=== PATIENT | male | born 1960 | race Caucasian/White ===

== ENCOUNTER 2018-10-15 23:04 | Inpatient (IN) | payer BC ==
--- NOTE | 2018-10-15 23:27 | ED ---
Chest Pain HPI - General Chief Complaint: Chest Pain Stated Complaint: Chest pain Time Seen by Provider: 10/15/18 23:10 Source: EMS Mode of arrival: EMS Limitations: no limitations - History of Present Illness Initial Comments: This patient is a 58-year-old man with history of previous MO over 10 years ago with stent placement, who presents by ambulance to be evaluated for left chest pain. The patient states that he had changed the rims on his 's vehicle tonight and then noticed that his chest was having some burning/aching discomfort. He tried taking aspirin which did not relieve things and then phoned EMS. They also gave the patient nitroglycerin which not relieve the symptoms. The patient rates things as moderate intensity. He has not noted worsening or relieving factors. No associated symptoms. 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 MD Complaint: chest pain Onset/Timin -: hour(s) Onset: other Pain Location: substernal Pain Radiation: LUE Severity: moderate Quality: aching Consistency: constant Improves With: nothing Worsens With: nothing Treatments Prior to Arrival: aspirin, nitroglycerin, oxygen - Related Data Home Medications Medication Instructions Recorded Confirmed ALPRAZolam [Xanax] 0.25 mg PO DAILY PRN 10/15/18 10/15/18 Aspirin EC [Ecotrin Low Dose] 81 mg PO HS 10/15/18 10/15/18 Atorvastatin [Lipitor] 80 mg PO HS 10/15/18 10/15/18 Losartan/Hydrochlorothiazide 1 tab PO HS 10/15/18 10/15/18 [Losartan-Hctz 100-12.5 mg Tab] Allergies Allergy/AdvReac Type Severity Reaction Status Date / Time No Known Allergies Allergy Verified 10/15/18 23:27 Review of Systems ROS Statement: Those systems with pertinent positive or pertinent negative responses have been documented in the HPI. ROS Other: All systems not noted in ROS Statement are negative. Constitutional: Denies: fever, chills Eyes: Denies: vision change Respiratory: Denies: cough, dyspnea Cardiovascular: Reports: as per HPI, chest pain. Denies: palpitations, dyspnea on exertion, orthopnea, edema, syncope Endocrine: Denies: fatigue Gastrointestinal: Denies: abdominal pain, nausea, vomiting Musculoskeletal: Denies: back pain Skin: Denies: rash Neurological: Denies: headache, weakness, numbness Hematological/Lymphatic: Denies: easy bleeding EKG Findings - EKG Results: EKG: interpreted by AYUSH, sinus rhythm (Rate 62 bpm) - Blocks, [place], Hypertrophy, ST Abn: QRS axis and voltage: left axis deviation (-30 to -90) Chamber hypertrophy or enlargement: left ventricular hypertrophy or enlargement (LVE) Past Medical History Past Medical History: Hyperlipidemia, Hypertension, Myocardial Infarction (MO) History of Any Multi-Drug Resistant Organisms: None Reported Past Surgical History: Heart Catheterization With Stent Additional Past Surgical History / Comment(s): mass removal Hodgkins nonlymphnodes Past Psychological History: No Psychological Hx Reported Smoking Status: Former smoker Past Alcohol Use History: None Reported Past Drug Use History: None Reported - Past Family History Father Family Medical History: Mitral Valve Prolapse (MVP) General Exam Limitations: no limitations General appearance: alert, in no apparent distress Head exam: Present: atraumatic, normocephalic Eye exam: Present: normal appearance. Absent: scleral icterus, conjunctival injection ENT exam: Present: normal oropharynx Neck exam: Present: normal inspection Respiratory exam: Present: normal lung sounds bilaterally. Absent: respiratory distress, wheezes, rales, rhonchi, stridor Cardiovascular Exam: Present: regular rate, normal rhythm, normal heart sounds. Absent: systolic murmur, diastolic murmur, rubs, gallop GI/Abdominal exam: Present: soft. Absent: distended, tenderness, guarding, rebound, rigid, mass Extremities exam: Present: normal inspection, normal capillary refill. Absent: pedal edema, calf tenderness Back exam: Present: normal inspection. Absent: CVA tenderness (R), CVA tenderness (L) Neurological exam: Present: alert Skin exam: Present: warm, dry, intact, normal color. Absent: rash Course Vital Signs 10/15/18 10/15/18 10/15/18 23:05 23:11 23:20 Temperature 98.1 F Pulse Rate 59 L 56 L Respiratory 18 11 L Rate Blood Pressure 161/85 161/85 O2 Sat by Pulse 99 96 98 Oximetry 10/15/18 10/15/18 10/15/18 23:30 23:40 23:50 Temperature Pulse Rate 60 58 L 57 L Respiratory 20 20 16 Rate Blood Pressure 161/85 131/79 131/79 O2 Sat by Pulse 95 96 97 Oximetry 10/16/18 10/16/18 10/16/18 00:00 01:00 02:00 Temperature Pulse Rate 54 L 52 L 49 L Respiratory 19 27 H 23 Rate Blood Pressure 131/79 127/66 127/76 O2 Sat by Pulse 97 95 Oximetry - Reevaluation(s) Reevaluation #1: 10/16/18 01:04 Patient's 58-year-old man with chest pain and minimally elevated troponin. Case has been discussed with cardiology (Dr. Kowalski) and with Dr. Abel who will be admitting physician. There treatment recommendations incorporated. The patient does continue to have some chest discomfort that he is rating a 3 out of 10 currently increasing nitroglycerin and if we are not able to resolve the discomfort the patient may require heart cath Tonight. Reevaluation #2: 10/16/18 02:07 Case discussed with cardiology and the ECG to be faxed. Critical Care Time Critical Care Time: Yes (40 minutes) Disposition Clinical Impression: Acute coronary syndrome, Elevated troponin I level Disposition: ADMITTED IP TO THIS HOSP Condition: Serious
[2018-10-15 23:37] LABS: Basophils # (A) 0.1 k/uL (0-0.2); Basophils % (A) 1 %; Eosinophils # (A) 0.2 k/uL (0-0.7); Eosinophils % (A) 2 %; HCT 41.1 % (39.0-53.0); HGB 13.7 gm/dL (13.0-17.5); Lymphocytes # (A) 1.7 k/uL (1.0-4.8); Lymphocytes % (A) 21 %; MCH 31.1 pg (25.0-35.0); MCHC 33.3 g/dL (31.0-37.0); MCV 93.2 fL (80.0-100.0); Mean Platelet Volume 6.7; Monocytes # (A) 0.5 k/uL (0-1.0); Monocytes % (A) 6 %; Neutrophils # (A) 5.4 k/uL (1.3-7.7); Neutrophils % (A) 68 %; Platelet Count 283 k/uL (150-450); RBC 4.41 m/uL (4.30-5.90); WBC 7.9 k/uL (3.8-10.6)
--- NOTE | 2018-10-15 23:41 | XR ---
EXAMINATION TYPE: XR chest 1V portable DATE OF EXAM: 10/15/2018 COMPARISON: NONE HISTORY: Chest pain TECHNIQUE: Single frontal view of the chest is obtained. FINDINGS: There is no heart failure nor confluent pneumonic infiltrate. Costophrenic angles are brant r. There are chest leads. IMPRESSION: No active cardiopulmonary disease. Normal heart.
[2018-10-16 00:01] LABS: ALT 30 U/L (21-72); AST 25 U/L (17-59); Albumin 3.9 g/dL (3.5-5.0); Alkaline Phosphatase 80 U/L (38-126); Anion Gap 9 mmol/L; Blood Urea Nitrogen 21 mg/dL (9-20); Calcium 9.4 mg/dL (8.4-10.2); Carbon Dioxide 27 mmol/L (22-30); Chloride 104 mmol/L (98-107); Glucose 131 mg/dL (74-99); Potassium 4.1 mmol/L (3.5-5.1); Sodium 140 mmol/L (137-145); Total Bilirubin 0.3 mg/dL (0.2-1.3); Total Protein 6.7 g/dL (6.3-8.2)
[2018-10-16 00:03] LABS: INR 0.9 (<1.2); Partial Thromboplastin Time 25.7 sec (22.0-30.0)
[2018-10-16 00:09] LABS: Creatine Kinase MB 5.9 ng/mL (0.0-2.4)
[2018-10-16 00:22] LABS: Troponin I 0.792 ng/mL (0.000-0.034)
[2018-10-16] MEDS ORDERED: HEPARIN SODIUM,PORCINE 5,000 UNIT/ML 1 ML VIAL IV ONE (00:26)
[2018-10-16] MEDS ORDERED: HEPARIN SODIUM,PORCINE 5,000 UNIT/ML 1 ML VIAL IV PRN (00:26)
[2018-10-16] MEDS ORDERED: HEPARIN SOD,PORK IN 0.45% NACL 25,000 UNIT in 0.45% NACL 1 250ML.BAG IV SCH (00:30)
[2018-10-16] MEDS ORDERED: MORPHINE SULFATE 4 MG/ML SYRINGE IV STA (00:31)
[2018-10-16] MEDS ORDERED: NITROGLYCERIN-D5W PMX 50 MG in DEXTROSE/WATER 1 250ML.BAG IV ONE (00:32)
[2018-10-16] MEDS: SODIUM CHLORIDE 0.9% 1,000 ML IV SCH ×5 (03:26→20:39)
[2018-10-16] MEDS ORDERED: ATORVASTATIN 80 MG TAB PO STA (05:20)
[2018-10-16] MEDS ORDERED: SODIUM CHLORIDE 0.9% 1,000 ML in EMPTY BAG 1 BAG IV ONE (05:20)
[2018-10-16] MEDS ORDERED: ASPIRIN 325 MG TAB PO STA (05:20)
[2018-10-16 06:52] LABS: Creatine Kinase MB 15.8 ng/mL (0.0-2.4)
--- NOTE | 2018-10-16 07:08 | P.CRDCN ---
History of Present Illness Consult date: 10/16/18 History of present illness: This is a 58-year-old gentleman with history of previous stent placement done about 15 years ago who comes here with complaints of burning chest pain. Over the last 2 years, Patient has been having exertional chest burning relieved with rest. Yesterday around 8:00, patient started having burning chest pain in the middle of the chest. Not associated with nausea vomiting or sweating. The chest pain was continuous and finally patient came to the emergency room. His EKG did not reveal any acute changes but there are mild nonspecific T-wave inversions in anterolateral leads. His cardiac enzymes showed a total CPK of 250 with a troponin of 0.7. Patient was treated with IV heparin and nitroglycerin with resolution of some of his symptoms. However, patient continued to have some bruising sensation the chest. He is advised to have Cardec catheterization for definitive diagnosis and further intervention as needed Review of Systems As per the chart Past Medical History Past Medical History: Hyperlipidemia, Hypertension, Myocardial Infarction (CT) Last Myocardial Infarction Date:: 04/24/2002 History of Any Multi-Drug Resistant Organisms: None Reported Past Surgical History: Heart Catheterization With Stent Additional Past Surgical History / Comment(s): mass removal Hodgkins nonlymphnodes Past Anesthesia/Blood Transfusion Reactions: No Reported Reaction Date of Last Stent Placement:: 04/24/2002 Smoking Status: Former smoker - Past Family History Father Family Medical History: Mitral Valve Prolapse (MVP) Medications and Allergies Home Medications Medication Instructions Recorded Confirmed Type ALPRAZolam [Xanax] 0.25 mg PO DAILY PRN 10/15/18 10/15/18 History Aspirin EC [Ecotrin Low Dose] 81 mg PO HS 10/15/18 10/15/18 History Atorvastatin [Lipitor] 80 mg PO HS 10/15/18 10/15/18 History Losartan/Hydrochlorothiazide 1 tab PO HS 10/15/18 10/15/18 History [Losartan-Hctz 100-12.5 mg Tab] Allergies Allergy/AdvReac Type Severity Reaction Status Date / Time No Known Allergies Allergy Verified 10/15/18 23:27 Physical Exam Vitals: Vital Signs Temp Pulse Pulse Resp BP BP Pulse Ox 10/16/18 04:00 98.5 F 54 L 20 113/58 95 10/16/18 03:43 98.6 F 57 L 20 116/61 95 10/16/18 02:00 49 L 23 127/76 95 10/16/18 01:00 52 L 27 H 127/66 10/16/18 00:00 54 L 19 131/79 97 10/15/18 23:50 57 L 16 131/79 97 10/15/18 23:40 58 L 20 131/79 96 10/15/18 23:30 60 20 161/85 95 10/15/18 23:20 56 L 11 L 161/85 98 10/15/18 23:11 96 10/15/18 23:05 98.1 F 59 L 18 161/85 99 Intake and Output 10/15/18 10/16/18 10/16/18 22:59 06:59 14:59 Intake Total 22.10 Balance 22.10 Intake: Intake, IV Titration 22.10 Amount Nitroglycerin-D5w Pmx 50 22.10 mg In Dextrose/Water 1 250ml.bag @ 10 MCG/MIN 3 mls/hr IV .Q24H ONE Rx#: [id number] Other: Voiding Method Toilet # Voids 1 Weight 92.9 kg GENERAL EXAM: Patient is alert and oriented and doesn't appear to be in any acute distress HEENT: Normocephalic. Normal reaction of pupils, equal size, normal range of extraocular motion. No erythema or exudates in the throat. NECK: No masses, no nuchal rigidity. CHEST: No chest wall deformity. LUNGS: Equal air entry with no crackles or wheeze. HEART: S1 and S2 normal with no audible mumurs or gallops. Regular rhythm, femorals equal on both sides.. ABDOMEN: No hepatosplenomegaly, normal bowel sounds, no guarding or rigidity. SKIN: No rashes CENTRAL NERVOUS SYSTEM: No focal deficits. EXTREMITIES: No cyanosis, clubbing or edema. Results 10/15/18 23:15 10/15/18 23:15 Cardiac Enzymes 10/15/18 10/15/18 Range/Units 23:15 23:15 AST 25 (17-59) U/L CK-MB (CK-2) 5.9 H (0.0-2.4) ng/mL Troponin I 0.792 H* (0.000-0.034) ng/mL Coagulation 10/15/18 Range/Units 23:15 PT 10.0 (9.0-12.0) sec APTT 25.7 (22.0-30.0) sec CBC 10/15/18 Range/Units 23:15 WBC 7.9 (3.8-10.6) k/uL RBC 4.41 (4.30-5.90) m/uL Hgb 13.7 (13.0-17.5) gm/dL Hct 41.1 (39.0-53.0) % Plt Count 283 (150-450) k/uL Comprehensive Metabolic Panel 10/15/18 Range/Units 23:15 Sodium 140 (137-145) mmol/L Potassium 4.1 (3.5-5.1) mmol/L Chloride 104 (98-107) mmol/L Carbon Dioxide 27 (22-30) mmol/L BUN 21 H (9-20) mg/dL Creatinine 0.91 (0.66-1.25) mg/dL Glucose 131 H (74-99) mg/dL Calcium 9.4 (8.4-10.2) mg/dL AST 25 (17-59) U/L ALT 30 (21-72) U/L Alkaline Phosphatase 80 (38-126) U/L Total Protein 6.7 (6.3-8.2) g/dL Albumin 3.9 (3.5-5.0) g/dL Current Medications Generic Name Dose Route Start Last Admin Trade Name Freq PRN Reason Stop Dose Admin Aspirin 325 mg 10/17/18 09:00 Aspirin PO DAILY [facility] Heparin Sodium (Porcine) 0 unit 10/16/18 00:26 Heparin IV PER PROTOCOL PRN Low PTT Protocol Heparin Sodium/Sodium Chloride 250 mls @ 9.97 mls/hr 10/16/18 00:30 10/16/18 00:55 25,000 unit/ Sodium Chloride IV 11 units/kg/hr .Q24H KIRSTIN 9.97 mls/hr Administration Protocol 11 UNITS/KG/HR Nitroglycerin/Dextrose 50 mg/ 250 mls @ 3 mls/hr 10/16/18 00:32 10/16/18 03: 24 IV Solution IV 10/17/18 00:31 50 mcg/min .Q24H ONE 15 mls/hr Titration Protocol 10 MCG/MIN Sodium Chloride 1,000 mls @ 100 mls/hr 10/16/18 01:15 10/16/18 03:26 Saline 0.9% IV 100 mls/hr .Q10H KIRSTIN Administration Sodium Chloride 1,000 ml/ IV 1,000 mls @ 90.71 mls/hr 10/16/18 05:20 05:52 Solution IV 10/16/18 16:21 90.71 mls/hr .Q11H2M ONE Administration 1 ML/KG/HR Nitroglycerin 0.4 mg 10/16/18 01:05 Nitrostat SUBLINGUAL Q5M PRN Chest Pain Intake and Output 10/15/18 10/16/18 10/16/18 22:59 06:59 14:59 Intake Total 22.10 Balance 22.10 Intake: Intake, IV Titration 22.10 Amount Nitroglycerin-D5w Pmx 50 22.10 mg In Dextrose/Water 1 250ml.bag @ 10 MCG/MIN 3 mls/hr IV .Q24H ONE Rx#: [id number] Other: Voiding Method Toilet # Voids 1 Weight 92.9 kg 10/15/18 23:15 10/15/18 23:15 EKG Interpretations (text) Sinus rhythm with mild ST-T changes. The anterolateral leads Assessment and Plan (1) Non-STEMI (non-ST elevated myocardial infarction) Current Visit: Yes Status: Acute Code(s): I21.4 - NON-ST ELEVATION (NSTEMI) MYOCARDIAL INFARCTION SNOMED Code(s): 99587180 (2) Hypertension Current Visit: Yes Status: Acute Code(s): I10 - ESSENTIAL (PRIMARY) HYPERTENSION SNOMED Code(s): 11253976 (3) Hypercholesteremia Current Visit: Yes Status: Acute Code(s): E78.00 - PURE HYPERCHOLESTEROLEMIA , UNSPECIFIED SNOMED Code(s): 22727519 Plan: Continue current medical therapy. We'll proceed with cardiac catheterization for further evaluation and further intervention as needed
[2018-10-16 07:10] LABS: Troponin I 7.99 ng/mL (0.000-0.034)
[2018-10-16] MEDS ORDERED: SODIUM CHLORIDE 0.9% 1,000 ML IV ONE (07:12)
[2018-10-16] MEDS ORDERED: fentaNYL (PF) 50 MCG/ML 2 ML AMP ONE (07:16)
[2018-10-16] MEDS ORDERED: fentaNYL (PF) 50 MCG/ML 2 ML AMP IVP ONE (07:18)
[2018-10-16] MEDS ORDERED: MIDAZOLAM 2 MG/2 ML VIAL IVP ONE (07:18)
[2018-10-16] MEDS ORDERED: LIDOCAINE 1% INJ 10MG/ML (20 ML MDV) SQ ONE (07:18)
[2018-10-16] MEDS ORDERED: HEPARIN SODIUM 1,000 UN/ML (10ML VL) ONE (07:22)
[2018-10-16] MEDS ORDERED: VERAPAMIL SYRINGE (5 MG/10 ML) INTRAARTER ONE (07:22)
[2018-10-16] MEDS ORDERED: HEPARIN SODIUM 1,000 UN/ML (10ML VL) IV ONE ×3 (07:23→08:16)
[2018-10-16] MEDS ORDERED: IOPAMIDOL-370 50ML BTL INJ ONE (07:34)
--- NOTE | 2018-10-16 07:51 | P.CARDCATH ---
Date of Procedure: 10/16/18 Preoperative Diagnosis: Non-STEMI Postoperative Diagnosis: Critical lesions involving the mid LAD involving a long segment and also previous stented area. Critical lesion involving the diagonal Procedure(s) Performed: Left heart catheterization with left ventriculography Description of Procedure: HISTORY: This is a 58-year-old gentleman with history of ischemic heart disease with previous stent placement done several years ago. Over the last 2 years, Patient has been having exertional burning chest pain relieved with rest. Around of 8:00 last night patient started having discomfort like a burning sensation. Finally around 11:00 patient was seen in the emergency room. His EKG showed some mild nonspecific ST-T changes in the anterolateral leads. His troponin was elevated on admission value of 0.79. Patient was started on IV heparin and IV nitroglycerin with improvement of his symptoms. Patient however continued to have some ongoing burning chest discomfort. Patient is advised to have a cardiac catheterization for definitive diagnosis CONSENT:I have discussed the risks, benefits and alternative therapies for the above-mentioned procedure and for both sedation/analgesia as well as necessary blood product administration, if indicated, as they pertain to this patient. The patient has indicated understanding and acceptance of the risks and procedures discussed. PROCEDURE: Patient was brought to the lab in a fasting state. Patient was given some IV sedation. The right wrist is infiltrated with lidocaine and right radial artery was entered using Seldinger technique. A 6-Setswana catheter was left in place and selective coronary arteriography and left ventriculography was performed. Patient tolerated the procedure well. No immediate complications were noted and patient is waiting to have intervention by Dr. SHANE Manzano, who is the on-call irrigator overhead Conscious Sedation: Versed 1mg Fentanyl 50 g Duration 26minutes HEMODYNAMICS: The aortic pressure is about 100/70. Patient was slightly hypotensive but improved after he stopping nitroglycerin and given IV fluids. The left ventricle end-diastolic pressure is about 12-15. There was no gradient across the aortic valve SELECTIVE CORONARY ARTERIOGRAPHY: LEFT MAIN: Long and patent without any significant left after disease THE LEFT ANTERIOR DESCENDING CORONARY ARTERY: This is a good caliber vessel with a in-stent stenosis involving the long segment of the mid LAD with about 85-90% stenosis followed by another 95% stenosis of the distal LAD. There is a moderate caliber diagonal which also is 95% stenosis THE LEFT CIRCUMFLEX AND IS CORONARY ARTERY:. Good caliber vessel giving rise to good-sized OM branch. Mild disease noted in in the main circumflex THE RIGHT CORONARY ARTERY: This is a good caliber vessel giving rise to PDA and PLV branches. Free of any occlusive disease LEFT VENTRICULOGRAPHY:. This revealed mildly enlarged left ventricle with a severe hypokinesis of the anteroapical and inferoapical segment. Ejection fraction is about 35% FINAL IMPRESSION: Critical lesion involving the mid and distal LAD involving the previous stent also. There is a critical lesion involving the diagonal. Mild disease in the circumflex. LV function is severely impaired with severe hypokinesis of the anteroapical wall and apex. Most of the most probably is stunned myocardium PLAN: Continue maximal medical therapy. Proceed with stent placement of the LAD and possibly diagonal PROGNOSIS: Guarded
[2018-10-16] MEDS ORDERED: TIROFIBAN BOLUS 12.5MG/250 ML BAG IV ONE (08:24)
[2018-10-16] MEDS ORDERED: TIROFIBAN 12.5MG-250ML NS 250 ML IV ONE (08:29)
[2018-10-16] MEDS ORDERED: IOPAMIDOL-370 125ML BTL INJ ONE (08:31)
[2018-10-16] MEDS: NITROGLYCERIN 1000MCG/10ML SYRINGE INTRACORON ONE ×3 (08:46→08:54)
[2018-10-16] MEDS ORDERED: TICAGRELOR 90 MG TAB ONE (08:49)
[2018-10-16] MEDS ORDERED: TICAGRELOR 90 MG TAB PO ONE (08:50)
[2018-10-16] MEDS ORDERED: IOPAMIDOL-370 100ML BTL INJ ONE (09:00)
[2018-10-16] MEDS ORDERED: ZOLPIDEM 5 MG TAB PO PRN (09:13)
[2018-10-16] MEDS ORDERED: MAG HYDROX/AL HYDROX/SIMETH 30 ML CUP PO PRN (09:13)
[2018-10-16] MEDS ORDERED: ATROPINE SULFATE 0.1 MG/ML 10ML SYRINGE IV PRN (09:13)
[2018-10-16] MEDS ORDERED: NITROGLYCERIN SL TABS 0.4 MG TAB SUBLINGUAL PRN (09:13)
[2018-10-16] MEDS ORDERED: RX INFO: IV CONTRAST WAS GIVEN 1 EACH MISC MISCELLANE PRN (09:13)
[2018-10-16] MEDS ORDERED: TIROFIBAN 12.5MG-250ML NS 250 ML IV SCH (09:15)
--- NOTE | 2018-10-16 09:45 | PTCA ---
PERCUTANEOUSTRANS CORORONARY ANGIOGRAPHY DATE OF SERVICE: 10/16/2018 PROCEDURE PERFORMED: PTCA and stenting of a long segment of mid LAD with drug-eluting stents. PERFORMED BY: Dr. Chad Manzano. SEDATION: Moderate conscious sedation time was 48 minutes. Patient was administered Versed. His oxygen saturation, hemodynamics and EKG were monitored closely. CLINICAL INFORMATION: Mr. Dae Alan is a 58-year-old gentleman who underwent previous PCI of LAD sometime in 2001. He presented to the hospital with a non-ST elevation [place], was seen and evaluated by Dr. Kowalski who performed a cardiac cath from right radial approach. Study revealed an in-stent restenosis of the mid LAD as well as beyond the stented segment there was a new area of narrowing of about 90-95 percent. The entire mid segment of the LAD was highly diseased with rare stenosis ranging anywhere from 70- 95 percent. The patient was advised intervention in the same setting. There was no family available and I spoke to the patient regarding the risks, benefits, and options and proceeded with the procedure. PROCEDURE NOTE: The existing 6-Tajik introducer in the right radial artery was used to perform the procedure. A JL3.56-Tajik guide catheter was used to cannulate the left coronary artery. A whisper wire was used to cross the lesion. Wire was kept distally. A 20 mm long 2.5 caliber NC Trek balloon was used to pre-dilate the entire segment that was diseased both within the stent and distal to the previously placed stent. I then deployed a 2.75 caliber 23 mm long Xience stent in the distal lesion and then proximal to it was 23 mm long 3.25 caliber Xience stent. The most proximal stent was a 3.5 caliber 8 mm long Xience stent. Then I took a 3.5 20 mm NC Trek balloon and dilated the 2 proximal stents at 14 atmospheres. Excellent angiographic result was achieved. Patient had chest pain and continued to demonstrate the anterior ST-T wave changes. Excellent angiographic result without complication was achieved. Patient received Brilinta 180 mg orally and was placed on a combination of heparin and tirofiban bolus and drip. The patient was sent to the telemetry unit on a tirofiban drip. Excellent angiographic result was achieved. The sheath was taken out and a large TR band was used to secure good hemostasis and saturation in the fingers of the right hand was more than 94 %. Results were discussed with the patient. Images were reviewed with the patient , but there was no family members available. Excellent angiographic result without complication was achieved and patient was sent to the room in a stable condition. BAILEY / SHARON: [id number] / MTDD
[2018-10-16 11:17] LABS: Cholesterol 244 mg/dL (<200); HDL Cholesterol 52 mg/dL (40-60); LDL Cholesterol,Calculated 173 mg/dL (0-99); Triglycerides 94 mg/dL (<150)
[2018-10-16 11:23] LABS: Creatine Kinase MB 15.7 ng/mL (0.0-2.4)
[2018-10-16] MEDS ORDERED: ALPRAZolam 0.25 MG TAB PO PRN (11:34)
[2018-10-16 11:35] LABS: Troponin I 6.53 ng/mL (0.000-0.034)
--- NOTE | 2018-10-16 13:03 | HP ---
HISTORY AND PHYSICAL CHIEF COMPLAINT: Burning and discomfort in the chest. HISTORY OF PRESENT ILLNESS: This is the first admission for this 58-year-old white male. He was working in the garage when he noticed some burning discomfort in the chest. He had no shortness of breath, nausea, vomiting, diaphoresis, radiation of discomfort, etc. He came to the emergency room where troponin was elevated and he was taken to the laboratory monitor and 3 stents were placed. He had an WI in 2001. In the emergency room he had LDL 171. REVIEW OF SYSTEMS: He has had no CVAs, TIAs, change in vision or hearing, cough, hemoptysis, asthma, shortness of breath, orthopnea, PND, murmurs, rheumatic fever, he has had no abdominal pain, no vomiting, diarrhea, melena, diverticulosis, diverticulitis, hemorrhoids, jaundice, hepatitis, cirrhosis, hematuria, frequency, urgency, and renal failure, diabetes, etc. Past medical history, family history, personal and social histories are otherwise unremarkable and noncontributory. He does not smoke. PHYSICAL EXAM: Blood pressure: 123/78 with a pulse of 80, respirations 19. He is afebrile. In general, he appeared to be well developed, well nourished, no acute distress. Skin color is normal. Skin is warm, dry. Lymph nodes not enlarged. Head, ears, eyes, nose, mouth, and throat were normal. Neck veins are not distended. Thyroid is enlarged. Chest is clear. Cardiac exam is normal. Abdomen is soft, nontender. EXTREMITIES: Normal. IMPRESSION: 1. Acute myocardial infarction. 2. Coronary artery disease. 3. Previous myocardial infarction. 4. Hypertension. 5. Hyperlipidemia. PLAN: 1. Bed rest and follow with Cardiology. 2. Place him on Crestor 40 mg. He cannot take fat soluble statins. He is probably also an excellent candidate for Repatha. MMODL / IJN: [id number] /
[2018-10-16] MEDS: NITROGLYCERIN SL TABS 0.4 MG TAB SUBLINGUAL PRN ×3 (18:57→19:11)
[2018-10-16] MEDS ORDERED: HYDROmorphone 0.5 MG/0.5 ML SYRINGE IVP STA (19:28)
[2018-10-16] MEDS: PRAVASTATIN SODIUM 80 MG TAB PO SCH (20:38)
[2018-10-16] MEDS: ASPIRIN 81 MG PO SCH (20:39)
[2018-10-16] MEDS ORDERED: ATORVASTATIN 80 MG TAB PO SCH (21:00)
[2018-10-17] MEDS ORDERED: HYDROmorphone 0.5 MG/0.5 ML SYRINGE IVP STA (02:58)
[2018-10-17 07:17] LABS: Basophils # (A) 0.1 k/uL (0-0.2); Basophils % (A) 1 %; Eosinophils # (A) 0.3 k/uL (0-0.7); Eosinophils % (A) 3 %; HCT 43.4 % (39.0-53.0); HGB 13.8 gm/dL (13.0-17.5); Lymphocytes # (A) 2.9 k/uL (1.0-4.8); Lymphocytes % (A) 32 %; MCH 30.1 pg (25.0-35.0); MCHC 31.8 g/dL (31.0-37.0); MCV 94.5 fL (80.0-100.0); Mean Platelet Volume 6.7; Monocytes # (A) 0.6 k/uL (0-1.0); Monocytes % (A) 6 %; Neutrophils % (A) 55 %; Platelet Count 290 k/uL (150-450); RBC 4.59 m/uL (4.30-5.90); RDW 13.1 % (11.5-15.5); WBC 9.1 k/uL (3.8-10.6)
[2018-10-17] MEDS: SODIUM CHLORIDE 0.9% 1,000 ML IV SCH ×2 (07:19→21:14)
[2018-10-17 07:40] LABS: Anion Gap 4 mmol/L; Blood Urea Nitrogen 12 mg/dL (9-20); Calcium 8.9 mg/dL (8.4-10.2); Carbon Dioxide 29 mmol/L (22-30); Chloride 108 mmol/L (98-107); Cholesterol 244 mg/dL (<200); Glucose 99 mg/dL (74-99); HDL Cholesterol 43 mg/dL (40-60); LDL Cholesterol,Calculated 169 mg/dL (0-99); Potassium 4.7 mmol/L (3.5-5.1); Sodium 141 mmol/L (137-145); Triglycerides 158 mg/dL (<150)
[2018-10-17] MEDS ORDERED: ASPIRIN 81 MG PO SCH (09:00)
[2018-10-17] MEDS ORDERED: ASPIRIN 325 MG TAB PO SCH (09:00)
[2018-10-17] MEDS: CLOPIDOGREL 75 MG TAB PO SCH (10:24)
[2018-10-17] MEDS: LOSARTAN 50 MG TAB PO SCH (10:24)
[2018-10-17 14:46] VITALS: BMI 29.9
--- NOTE | 2018-10-17 15:01 | P.PN ---
Subjective Progress Note Date: 10/17/18 This 58-year-old gentleman was admitted with a non-ST elevation [place] and underwent stent placement of the LAD with multiple stents. Patient had some vague chest discomfort which was helped with the Dilaudid last night. Patient seemed to be comfortable today. His lungs are clear. Heart is regular. No JVD. No peripheral edema. The puncture site in the right wrist appears to be healing well without any hematoma. Pulses intact. His lipid panel showed a high cholesterol in the range of 240 and the LDL of 140. Patient is on pravastatin 80 mg. May change to Crestor or Lipitor. We'll increase his activity. Possible discharge in 24 hours. Objective - Vital Signs Vital signs: Vital Signs Temp 98.2 F 10/17/18 08:55 Pulse 60 10/17/18 12:15 Resp 16 10/17/18 12:15 BP 117/77 10/17/18 12:15 Pulse Ox 95 10/17/18 12:15 Intake & Output 10/16/18 10/17/18 10/17/18 18:59 06:59 18:59 Intake Total 2229.2 150 480 Output Total 1400 400 Balance 2229.2 -1250 80 Weight 92.1 kg 92.1 kg Intake: IV 502 Intake, IV Titration 667.2 Amount Sodium Chloride 0.9% 1, 600 000 ml @ 75 mls/hr IV . [id number] KIRSTIN Rx#:[id number] Tirofiban 12.5MG-250Ml Ns 67.2 250 ml @ 0.15 MCG/KG/MIN 16.722 mls/hr IV . [id number] KIRSTIN Rx#:[id number] Oral 1060 150 480 Output: Urine 1400 400 Other: Voiding Method Toilet Toilet # Voids 1 2 - Exam GENERAL EXAM: Patient is alert and oriented and doesn't appear to be in any acute distress HEENT: Normocephalic. Normal reaction of pupils, equal size, normal range of extraocular motion. No erythema or exudates in the throat. NECK: No masses, no nuchal rigidity. CHEST: No chest wall deformity. LUNGS: Equal air entry with no crackles or wheeze. HEART: S1 and S2 normal with no audible mumurs or gallops. Regular rhythm, femorals equal on both sides.. ABDOMEN: No hepatosplenomegaly, normal bowel sounds, no guarding or rigidity. SKIN: No rashes CENTRAL NERVOUS SYSTEM: No focal deficits. EXTREMITIES: No cyanosis, clubbing or edema. PUNCTURE SITE: No hematoma. No ecchymosis. Intact pulses - Labs CBC & Chem 7: 10/17/18 05:46 10/17/18 05:46 Labs: Abnormal Lab Results - Last 24 Hours (Table) 10/17/18 Range/Units 05:46 Chloride 108 H (98-107) mmol/L Triglycerides 158 H (<150) mg/dL Cholesterol 244 H (<200) mg/dL LDL Cholesterol, Calc 169 H (0-99) mg/dL Assessment and Plan (1) Non-STEMI (non-ST elevated myocardial infarction) Current Visit: Yes Status: Acute Code(s): I21.4 - NON-ST ELEVATION (NSTEMI) MYOCARDIAL INFARCTION SNOMED Code(s): 52639843 (2) Hypertension Current Visit: Yes Status: Acute Code(s): I10 - ESSENTIAL (PRIMARY) HYPERTENSION SNOMED Code(s): 43321479 (3) Hypercholesteremia Current Visit: Yes Status: Acute Code(s): E78.00 - PURE HYPERCHOLESTEROLEMIA , UNSPECIFIED SNOMED Code(s): 04390538 Plan: Patient is clinically doing well. Lab work shows normal hemoglobin and platelet counts. Puncture site is healing well. Patient had a vague pain which seemed to be improving. We'll increase his activity. Possible discharge in AM.
--- NOTE | 2018-10-17 21:02 | PN ---
PROGRESS NOTE CHIEF COMPLAINT: Chest pain. HISTORY OF PRESENT ILLNESS: This gentleman was found to have an MN. He was taken to the manager cardiac cath, where the LAD received extensive stenting. He feels fine today. He has had no significant pain, shortness of breath, arrhythmias, etc. PHYSICAL EXAM: Vital signs were all normal. The chest is clear. The cardiac exam is normal. The abdomen is soft, nontender. IMPRESSION: 1. Acute myocardial infarction. 2. Coronary artery disease. PLAN: He will likely be going home tomorrow. He will definitely require attention to his very high lipid numbers. MMODL / IJN: [id number] /
[2018-10-17] MEDS: PRAVASTATIN SODIUM 80 MG TAB PO SCH (21:24)
[2018-10-17] MEDS: ASPIRIN 81 MG PO SCH (21:24)
[2018-10-18] MEDS: SODIUM CHLORIDE 0.9% 1,000 ML IV SCH (03:19)
[2018-10-18 03:57] VITALS: RESP 18
[2018-10-18 06:52] LABS: Basophils # (A) 0.1 k/uL (0-0.2); Basophils % (A) 1 %; Eosinophils # (A) 0.3 k/uL (0-0.7); Eosinophils % (A) 5 %; HCT 44.8 % (39.0-53.0); HGB 14.3 gm/dL (13.0-17.5); Lymphocytes % (A) 30 %; MCH 30.1 pg (25.0-35.0); MCV 94.1 fL (80.0-100.0); Mean Platelet Volume 6.4; Monocytes # (A) 0.5 k/uL (0-1.0); Monocytes % (A) 8 %; Neutrophils # (A) 3.6 k/uL (1.3-7.7); Neutrophils % (A) 53 %; Platelet Count 288 k/uL (150-450); RBC 4.76 m/uL (4.30-5.90); RDW 12.8 % (11.5-15.5); WBC 6.7 k/uL (3.8-10.6)
[2018-10-18] MEDS: LOSARTAN 50 MG TAB PO SCH (08:05)
[2018-10-18] MEDS: CLOPIDOGREL 75 MG TAB PO SCH (08:05)
[2018-10-18 08:27] VITALS: BP 120/72; PULSE 57; TEMP 98.8
--- NOTE | 2018-10-19 17:46 | DS ---
DISCHARGE SUMMARY DATE OF SERVICE: 10/18/2018. CHIEF COMPLAINT: Chest pain. HISTORY OF PRESENT ILLNESS AND PHYSICAL EXAM: Details of this man's history and physical can be found in the initial workup. LABORATORY STUDIES: While he was in the hospital, he had laboratory studies, details of which can be found in the laboratory section of his chart. COURSE IN HOSPITAL: After admission, he was placed on bedrest, started on intravenous fluids and had serial EKGs and enzymes and they were normal. He was taken to the slab installer, where he underwent stent placement. Afterwards he had no significant complications or problems and he is doing well enough it was felt he could go home on the . He will follow up with Cardiology and either my office or his own physician. FINAL DIAGNOSES: 1. Non ST-segment elevation myocardial infarction. 2. Coronary artery disease. 3. Hyperlipidemia. OPERATIONS: Cardiac cath with stenting. CONSULTATIONS: Cardiology. He is improved. MMSENDYL / PRITIN: [id number] /
== END 2018-10-18 11:50 | disposition home or self-care (01) | DRG 247 ==
LOC: EC 23:04 → 3SCARD 10-16 01:06
PROVIDERS: ADMIT Family Medicine; ATTEND Family Medicine
PROC: B2111ZZ Fluoroscopy of Multiple Coronary Arteries using Low Osmolar Contrast (ICD-10-PCS; 2018-10-16)
PROC: B2151ZZ Fluoroscopy of Left Heart using Low Osmolar Contrast (ICD-10-PCS; 2018-10-16)
PROC: 027135Z Dilation of Coronary Artery, Two Arteries with Two Drug-eluting Intraluminal Devices, Percutaneous Approach (ICD-10-PCS; principal; 2018-10-16 06:53)
PROC: 4A023N7 Measurement of Cardiac Sampling and Pressure, Left Heart, Percutaneous Approach (ICD-10-PCS; 2018-10-16 06:53)
DX: I21.4 Non-ST elevation (NSTEMI) myocardial infarction (principal); T82.855A Stenosis of coronary artery stent, initial encounter; E78.00 Pure hypercholesterolemia, unspecified; E78.5 Hyperlipidemia, unspecified; I10 Essential (primary) hypertension; I25.10 Atherosclerotic heart disease of native coronary artery without angina pectoris; I25.2 Old myocardial infarction; Z85.71 Personal history of Hodgkin lymphoma; Z87.891 Personal history of nicotine dependence; Z95.5 Presence of coronary angioplasty implant and graft; Z79.82 Long term (current) use of aspirin; Z79.899 Other long term (current) drug therapy; Y83.1 Surgical operation with implant of artificial internal device as the cause of abnormal reaction of the patient, or of later complication, without mention of misadventure at the time of the procedure
CPT/HCPCS: 36415; 71045; 80048; 80053; 80061; 82550; 82553; 83735; 84484; 85025; 85610; 85730; 93005; 93458; 94760; 96365; 96366; 96368; 96376; 99291; C1874